=== PATIENT | male | born 1985 ===

== ENCOUNTER 2016-12-23 19:01 | Emergency (ER) | payer OTHER ==
[2016-12-23 19:01] VITALS: BMI 20.9
[2016-12-23 19:23] VITALS: BP 133/83; PULSE 69; RESP 18; TEMP 99; O2SAT 99
[2016-12-23] MEDS ORDERED: Bacitracin 500 Units/gm Oint Foilpak UD TOP ONE (19:30)
[2016-12-23] MEDS ORDERED: Bacitracin 500 Units/gm Oint Foilpak UD ONE (19:45)
--- NOTE | 2016-12-23 19:51 | C.PDOC ---
History Of Present Illness 31 year old male presents to the ED with complaints of right hand pain beginning yesterday. Patient states he was moving a heavy safe and it cut his fingers. He notes tetanus is not up to date and denies weaknes, numbness, or other complaints at this time. Time Seen by Provider: 12/23/16 19:25 Chief Complaint (Nursing): Upper Extremity Problem/Injury History Per: Patient History/Exam Limitations: no limitations Onset/Duration Of Symptoms: Days (1 day) Current Symptoms Are (Timing): Still Present Quality: "Pain" Exacerbating Factor(s): Nothing Recent travel outside of the [place]: No Past Medical History Reviewed: Historical Data, Nursing Documentation, Vital Signs Vital Signs: Last Vital Signs Temp 99 F 12/23/16 19:21 Pulse 69 12/23/16 19:21 Resp 18 12/23/16 19:21 BP 133/83 12/23/16 19:21 Pulse Ox 99 12/23/16 21:06 Surgical History: Appendectomy Family History: States: Unknown Family Hx - Social History Hx Alcohol Use: No Hx Substance Use: No - Immunization History Hx Tetanus Toxoid Vaccination: No Hx Influenza Vaccination: No Hx Pneumococcal Vaccination: No Review Of Systems Constitutional: Negative for: Fever, Chills Cardiovascular: Negative for: Chest Pain Respiratory: Negative for: Shortness of Breath Musculoskeletal: Positive for: Hand Pain (right hand pain ) Neurological: Negative for: Weakness, Numbness Physical Exam - Physical Exam Appears: Non-toxic, No Acute Distress Skin: Warm, Dry, Other (superficial abrasions to proximal volar surface of third , fourth, and fifth digits. ) Head: Atraumatic, Normacephalic Eye(s): bilateral: Normal Inspection, EOMI Neck: Normal ROM Chest: Symmetrical, No Deformity Cardiovascular: Rhythm Regular, No Murmur Extremity: Normal ROM, No Pedal Edema, No Calf Tenderness, Capillary Refill ( good capillary refill, less than 2 seconds ), No Deformity, No Swelling Neurological/Psych: Oriented x3, Normal Speech, Normal Motor, Normal Sensation Gait: Steady ED Course And Treatment O2 Sat by Pulse Oximetry: 99 (room air ) Pulse Ox Interpretation: Normal Progress Note: Bacitracin was applied and patient was given Tetanus shot. Disposition Counseled Patient/Family Regarding: Diagnosis, Need For Followup - Disposition Referrals: Non [facility] Provider, [Primary Care Provider] - Disposition: HOME/ ROUTINE Disposition Time: 19:48 Condition: STABLE Additional Instructions: Keep area clean and dry. May wash gently with soap and water, do not use alcohol or iodine solution. Apply bacitracin or antibiotic ointment to wound Instructions: Acute Wound Care (ED) - POA Present On Arrival: None - Clinical Impression Clinical Impression: Finger abrasion, non-infected - Scribe Statement The provider has reviewed the documentation as recorded by the Scribsolomon Lyons All medical record entries made by the Tuyetibsolomon were at my direction and personally dictated by me. I have reviewed the chart and agree that the record accurately reflects my personal performance of the history, physical exam, medical decision making, and the department course for this patient. I have also personally directed, reviewed, and agree with the discharge instructions and disposition.
== END 2016-12-23 19:59 | disposition home or self-care (01) ==
LOC: C.ER 19:01 → SUPCPDRO 19:01 → C.ER 19:59
DX: S60.412A Abrasion of right middle finger, initial encounter (principal); S60.414A Abrasion of right ring finger, initial encounter; S60.416A Abrasion of right little finger, initial encounter; W45.8XXA Other foreign body or object entering through skin, initial encounter

== ENCOUNTER 2017-09-01 20:07 | Emergency (ER) | payer OTHER ==
[2017-09-01 20:08] VITALS: BMI 20.9
[2017-09-01 21:32] LABS: BASO % 0.7 % (0.0-2.0); EOS % 0.8 % (0.0-4.0); HEMOGLOBIN 15.5 g/dL (12.0-18.0); LYMPH # 1.2 K/uL (1.0-4.3); LYMPH % 23.7 % (20.0-40.0); MEAN CELL VOLUME 84.5 fL (80.0-94.0); MEAN CORPUSCULAR HEMOGLOBIN 28.4 pg (27.0-31.0); MEAN CORPUSCULAR HGB CONC 33.5 g/dL (33.0-37.0); MEAN PLATELET VOLUME 8.9 fL (7.2-11.7); MONO # 0.4 K/uL (0.0-0.8); MONO % 8.7 % (0.0-10.0); NEUT # 3.4 K/uL (1.8-7.0); NEUT % 66.1 % (50.0-75.0); NRBC % 0.1 % (0.0-2.0); RBC 5.45 Mil/uL (4.40-5.90); RED CELL DISTRIBUTION WIDTH 13.4 % (11.5-14.5); WHITE BLOOD COUNT 5.1 K/uL (4.8-10.8)
[2017-09-01 21:34] LABS: URINE BILIRUBIN NEGATIVE (NEGATIVE); URINE BLOOD NEGATIVE (NEGATIVE); URINE CLARITY Clear (Clear); URINE COLOR Colorless (YELLOW); URINE GLUCOSE (UA) NORMAL (Normal); URINE LEUKOCYTE ESTERASE NEG Leu/uL (Negative); URINE PROTEIN NEGATIVE (NEGATIVE); URINE UROBILINOGEN NORMAL mg/dL (0.2-1.0)
[2017-09-01 21:44] LABS: ALB/GLOB RATIO 1.6 (1.0-2.1); ALBUMIN 4.6 g/dL (3.5-5.0); ALT/SGPT 12 U/L (21-72); AST/SGOT 21 U/L (17-59); BLOOD UREA NITROGEN 13 mg/dL (9-20); CALCIUM 9.2 mg/dl (8.6-10.4); GFR AFRICAN-AMERICAN > 60; GFR NON-AFRICAN AMERICAN > 60
[2017-09-01 21:50] LABS: BARBITURATES, UR NEGATIVE (NEGATIVE); BENZODIAZEPINES, UR NEGATIVE (NEGATIVE); OPIATES, UR NEGATIVE (NEGATIVE)
[2017-09-01 21:51] LABS: PHENCYCLIDINE, UR POSITIVE (NEGATIVE)
[2017-09-01 22:18] VITALS: BP 114/78; PULSE 97; RESP 18; TEMP -98.6; O2SAT 98
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
== END 2017-09-01 22:30 | disposition left against medical advice (07) ==
LOC: C.ER 20:07
DX: F16.129 Hallucinogen abuse with intoxication, unspecified (principal); F10.129 Alcohol abuse with intoxication, unspecified; Y90.6 Blood alcohol level of 120-199 mg/100 ml; V89.2XXA Person injured in unspecified motor-vehicle accident, traffic, initial encounter
CPT/HCPCS: 80053; 81001; 82948; 85025; 99285; G0480

== ENCOUNTER 2018-04-21 15:47 | Emergency (ER) | payer SELFPAY ==
[2018-04-21 15:47] VITALS: BMI 20.9
[2018-04-21 15:59] VITALS: O2SAT 95
--- NOTE | 2018-04-21 17:16 | C.PDOC ---
History Of Present Illness 32 y/o male presents to ED complaining of body aches, fever, chills, sore throat, and cough since yesterday. States that multiple family members has influenza and he thinks he has caught it as well. Denies any chest pain, SOB, or rash. Time Seen by Provider: 04/21/18 16:28 Chief Complaint (Nursing): Flu-like Symptoms History Per: Patient History/Exam Limitations: no limitations Onset/Duration Of Symptoms: Days Current Symptoms Are (Timing): Still Present Past Medical History Reviewed: Historical Data, Nursing Documentation, Vital Signs Vital Signs: Last Vital Signs Temp 100.9 F H 04/21/18 15:56 Pulse 108 H 04/21/18 15:56 Resp 18 04/21/18 15:56 BP 112/78 04/21/18 15:56 Pulse Ox 95 04/21/18 15:56 - Medical History PMH: Denies: Chronic Kidney Disease Surgical History: Appendectomy Family History: States: No Known Family Hx - Social History Hx Alcohol Use: Yes Hx Substance Use: Yes - Immunization History Hx Tetanus Toxoid Vaccination: No Hx Influenza Vaccination: No Hx Pneumococcal Vaccination: No Review Of Systems Except As Marked, All Systems Reviewed And Found Negative. Constitutional: Positive for: Fever, Chills, Other (Body aches) ENT: Positive for: Throat Pain Cardiovascular: Negative for: Chest Pain Respiratory: Positive for: Cough. Negative for: Shortness of Breath Skin: Negative for: Rash Physical Exam - Physical Exam Appears: Non-toxic, Other (Mildly uncomfortable) Skin: Warm, Dry, No Rash Head: Atraumatic, Normacephalic Eye(s): bilateral: Normal Inspection, PERRL, EOMI Oral Mucosa: Moist Throat: Erythema (mild), No Exudate Neck: Supple Chest: Symmetrical Cardiovascular: Rhythm Regular, No Murmur Respiratory: Normal Breath Sounds, No Rales, No Rhonchi, No Wheezing, Other (Coughs occasionally) Gastrointestinal/Abdominal: Soft, No Tenderness Extremity: Bilateral: Atraumatic, Normal ROM Neurological/Psych: Oriented x3, Normal Speech (Speaking full sentences) ED Course And Treatment O2 Sat by Pulse Oximetry: 95 (RA) Pulse Ox Interpretation: Normal Progress Note: Flu swab ordered and reviewed. Patient is positive for influenza A. Patient was given tamiflu and motrin PO. On re-evaluation, patient is tolerating PO and will be discharged home. Instructed patient to follow up with PMD in 1-2 days and to return to ER if symptoms worsen. Disposition Counseled Patient/Family Regarding: Studies Performed, Diagnosis, Need For Followup, Rx Given - Disposition Referrals: [facility] [Outside] Disposition: HOME/ ROUTINE Disposition Time: 17:15 Condition: STABLE Additional Instructions: DRINK PLENTY OF FLUIDS AND GET REST USE MEDICATIONS DIRECTED FOLLOW UP WITH YOUR DOCTOR IN 1-2 DAYS RETURN TO ER IF SYMPTOMS WORSEN Prescriptions: Ibuprofen [Motrin Tab] 600 mg PO Q6 PRN #30 tab PRN Reason: fever/pain Oseltamivir Phosphate [Tamiflu] 75 mg PO BID #10 capsule Instructions: Flu, Adult (DC) Forms: [employer] (Kenyan), Work Excuse Print Language: NIGERIEN - Clinical Impression Clinical Impression: Influenza - Scribe Statement The provider has reviewed the documentation as recorded by the Adrian Coleman Provider Attestation: All medical record entries made by the Tuyetibsolomon were at my direction and personally dictated by me. I have reviewed the chart and agree that the record accurately reflects my personal performance of the history, physical exam, medical decision making, and the department course for this patient. I have also personally directed, reviewed, and agree with the discharge instructions and disposition.
[2018-04-21 17:26] VITALS: BP 119/82; PULSE 100; RESP 20; TEMP 99.1
== END 2018-04-21 17:26 | disposition home or self-care (01) ==
LOC: C.ER 15:47
DX: J11.1 Influenza due to unidentified influenza virus with other respiratory manifestations (principal)